=== PATIENT | male | born 1950 | race African-American/Black ===

== ENCOUNTER 2020-04-01 03:47 | Inpatient (IN) | payer MEDICARE ==
[~2020-04-01] VITALS: Ht 170.2 cm; Wt 90.3 kg
[2020-04-01] VITALS (10 sets, daily range): BP systolic 127–200; BP diastolic 79–103
[2020-04-01 04:43] LABS: HEMATOCRIT. 22.8 % (42.0-52.0); HEMOGLOBIN. 7.7 g/dL (14.0-18.0); MEAN CORPUSCULAR VOLUME 94.7 fL (80.0-94.0); MEAN PLATELET VOLUME 8.8 fl (7.4-10.4); PLATELET 187 x1000/uL (130-400); RED CELL DISTRIBUTION WIDTH 14.1 % (11.6-14.6)
[2020-04-01 04:51] LABS: CHLORIDE 114 mEq/L (98-107)
[2020-04-01] MEDS ORDERED: FUROSEMIDE 100MG/10ML VIAL IV NR (05:12)
[2020-04-01] MEDS ORDERED: SODIUM BICARBONATE 8.4% 1 MEQ/ML 50ML SYR IV NR (05:15)
[2020-04-01] MEDS ORDERED: CALCIUM CHLORIDE 1GM/10ML SYR IV NR (05:15)
[2020-04-01] MEDS ORDERED: DEXTROSE 50% WATER 50ML SYRINGE IV NR (05:15)
[2020-04-01] MEDS ORDERED: INSULIN REGULAR (HUMULIN R) 300UNITS/3ML IV NR (05:15)
[2020-04-01] MEDS ORDERED: ALBUTEROL (0.083%) 2.5MG/3ML NEB HHN NR (05:15)
[2020-04-01 05:39] LABS: PLATELET ESTIMATE NORMAL
[2020-04-01] MEDS ORDERED: DEXTROSE 50% WATER 50ML SYRINGE IV ONE (07:45)
[2020-04-01 11:12] LABS: BG BASE EXCESS -9.6 mmol/L (-2.0-2.0); BG CARBOXYHEMOGLOBIN 0.4 % (0.5-1.5); BG DEOXYHEMOGLOBIN 9.1 % (0.0-5.0); BG FRACTION INSPIRED OXYGEN 21; BG HCO3 ACT 17.4 mmol/L (22.0-26.0); BG METHEMOGLOBIN 0.2 % (0.0-1.5); BG OXYGEN SATURATION 90.8 % (92.0-98.5); BG OXYHEMOGLOBIN 90.3 % (94.0-97.0); BG PCO2 43.6 mmHg (35.0-45.0); BG PH 7.219 (7.350-7.450); BG PO2 68.8 mmHg (75.0-100.0); BG SAMPLE SITE RIGHT RADIAL; BG TOTAL HEMOGLOBIN 7.6 g/dL (12.0-18.0); BG VENT MODE ROOM AIR
[2020-04-01] MEDS ORDERED: TAMS-11 PO (11:51)
[2020-04-01] MEDS ORDERED: AMLO10TA80 PO (11:51)
[2020-04-01] MEDS ORDERED: METO-385 PO (11:51)
[2020-04-01] MEDS ORDERED: SIMV-46 PO (11:51)
[2020-04-01] MEDS ORDERED: CLON-457 PO (11:51)
[2020-04-01] MEDS ORDERED: ACETAMINOPHEN 650MG SUPP PR PRN (12:00)
[2020-04-01] MEDS ORDERED: HYDROCODONE/ACETAMINOPHEN 5/325MG TABLET PO PRN (12:00)
[2020-04-01] MEDS ORDERED: ACETAMINOPHEN 325MG TABLET PO PRN (12:00)
[2020-04-01 12:40] LABS: PROTHROMBIN TIME 10.9 sec (9.6-11.0)
[2020-04-01] MEDS: ENOXAPARIN 30MG/0.3ML SYR SUBCUT SCH (13:00)
[2020-04-01] MEDS: CLONIDINE 0.1MG TABLET PO SCH ×2 (14:00→20:26)
[2020-04-01] MEDS ORDERED: FENTANYL CITRATE/PF 50MCG/ML 2ML VIAL ONE (14:23)
[2020-04-01] MEDS ORDERED: FENTANYL CITRATE/PF 50MCG/ML 2ML VIAL IV NR (14:23)
[2020-04-01] MEDS ORDERED: CEFAZOLIN 1000MG PREMIX 50 ML IV NR (14:23)
[2020-04-01] MEDS ORDERED: CEFAZOLIN 1000MG PREMIX 50 ML IV ONE (14:23)
[2020-04-01] MEDS ORDERED: SODIUM BICARBONATE 4% (2.4MEQ) 5ML VIAL IV ONE (15:00)
[2020-04-01] MEDS ORDERED: HEPARIN 1000 UNITS/ML 10ML ONE (15:00)
[2020-04-01] MEDS ORDERED: LIDOCAINE HCL 1% 20ML VIAL (Pyxis) INJ ONE (15:00)
[2020-04-01] MEDS: HYDRALAZINE 20MG/ML VIAL IV SCH ×2 (16:14→23:15)
[2020-04-01 16:45] LABS: FOLIC ACID (FOLATE) SERUM 7.1 ng/mL (>5.38)
[2020-04-01 17:44] LABS: PHOSPHORUS 5.8 mg/dL (2.5-4.9)
[2020-04-01] MEDS ORDERED: DEXTROSE 50% WATER 50ML SYRINGE IV PRN (20:15)
[2020-04-01] MEDS: BLOOD SUGAR DIAGNOSTIC STRIP TEST SCH (20:26)
[2020-04-01] MEDS: INSULIN LISPRO 100 UNITS/ML SUBCUT SCH (20:26)
[2020-04-01] MEDS: METOPROLOL TARTRATE 50MG TABLET PO SCH (20:26)
[2020-04-02] VITALS (26 sets, daily range): BP systolic 133–208; BP diastolic 73–111
[2020-04-02] MEDS ORDERED: VANCOMYCIN 1 G PREMIX 200 ML IV STA (00:12)
[2020-04-02] MEDS ORDERED: PIPERACILLIN/TAZOBACTAM 2.25 G in DEXTROSE 5% WATER 50 ML IV SCH (00:15)
[2020-04-02] MEDS: ACETAMINOPHEN 325MG TABLET PO PRN (00:40)
[2020-04-02] MEDS: PIPERACILLIN/TAZOBACTAM 2.25 G in DEXTROSE 5% WATER 50 ML IV SCH ×2 (01:31→20:41)
[2020-04-02] MEDS ORDERED: VANCOMYCIN 1500MG in DEXTROSE 5% WATER 250ML IV NR (02:00)
[2020-04-02 02:07] LABS: CREATINE KINASE 2841 IU/L (39-308)
[2020-04-02] MEDS: CLONIDINE 0.1MG TABLET PO SCH ×3 (05:30→20:41)
[2020-04-02] MEDS: HYDRALAZINE 20MG/ML VIAL IV SCH ×2 (05:30)
[2020-04-02 07:18] LABS: HEMATOCRIT. 22.2 % (42.0-52.0); HEMOGLOBIN. 7.3 g/dL (14.0-18.0); MEAN CORPUSCULAR HEMOGLOBIN 31.3 pg (28.0-32.0); MEAN CORPUSCULAR VOLUME 95.1 fL (80.0-94.0); MEAN PLATELET VOLUME 9.4 fl (7.4-10.4); PLATELET 167 x1000/uL (130-400); RED BLOOD CELL COUNT 2.33 mill/uL (4.7-6.1)
[2020-04-02 07:24] LABS: CHLORIDE 113 mEq/L (98-107)
[2020-04-02] MEDS: BLOOD SUGAR DIAGNOSTIC STRIP TEST SCH ×4 (07:30→21:00)
[2020-04-02 07:32] LABS: LDL CHOLESTEROL 55 mg/dL (5-100)
[2020-04-02 07:35] LABS: HDL CHOLESTEROL 68 mg/dL (40-59); T4 FREE 0.83 ng/dL (0.76-1.46)
[2020-04-02] MEDS ORDERED: CEFAZOLIN 1000MG PREMIX 50 ML IV ONE (07:40)
[2020-04-02] MEDS ORDERED: CEFAZOLIN 1000MG PREMIX 50 ML IV NR (07:40)
[2020-04-02] MEDS ORDERED: FENTANYL CITRATE/PF 50MCG/ML 2ML VIAL ONE (07:41)
[2020-04-02] MEDS ORDERED: FENTANYL CITRATE/PF 50MCG/ML 2ML VIAL IV NR (07:41)
[2020-04-02] MEDS: INSULIN LISPRO 100 UNITS/ML SUBCUT SCH ×4 (08:00→21:00)
[2020-04-02] MEDS: METOPROLOL TARTRATE 50MG TABLET PO SCH ×2 (09:35→22:34)
[2020-04-02] MEDS: TAMSULOSIN HCL 0.4MG SR CAPSULE PO SCH (09:36)
[2020-04-02] MEDS: AMLODIPINE 10MG TABLET PO SCH (09:36)
[2020-04-02] MEDS ORDERED: HYDRALAZINE HCL 25MG TABLET PO SCH (12:35)
[2020-04-02] MEDS: FOLIC ACID/VITAMIN B COMP W-C TABLET PO SCH (13:40)
[2020-04-02] MEDS: ENOXAPARIN 30MG/0.3ML SYR SUBCUT SCH (13:40)
[2020-04-02] MEDS: CALCIUM ACETATE 667MG CAPSULE PO SCH ×2 (13:40→19:21)
[2020-04-02] MEDS: HYDRALAZINE HCL 25MG TABLET PO SCH ×2 (14:51→22:33)
[2020-04-02] MEDS ORDERED: VANCOMYCIN 750 MG PREMIX 150 ML IV NR (17:00)
[2020-04-02 18:40] LABS: COLOR URINE YELLOW (YELLOW); KETONES URINE NEGATIVE (NEGATIVE); LEUKOCYTE ESTERASE URINE NEGATIVE (NEGATIVE); NITRITE URINE NEGATIVE (NEGATIVE); OCCULT BLOOD URINE 3+ (NEGATIVE); PH URINE 5.5 (4.5-8.0); PROTEIN URINE 4+ (NEGATIVE); SPECIFIC GRAVITY URINE 1.016 (1.005-1.030); UROBILINOGEN URINE 0.2 E.U./dL (0.2-1.0)
[2020-04-02 18:41] LABS: CLARITY URINE HAZY (CLEAR)
[2020-04-02 18:51] LABS: *AMPHETAMINES SCREEN URINE NEGATIVE (NEGATIVE); *BARBITURATES SCREEN URINE NEGATIVE (NEGATIVE); *BENZODIAZEPINES SCREEN URINE NEGATIVE (NEGATIVE); *COCAINE SCREEN URINE NEGATIVE (NEGATIVE)
[2020-04-02 18:52] LABS: CANNABINOID URINE SCREEN NEGATIVE (NEGATIVE); METHADONE URINE SCREEN NEGATIVE (NEGATIVE); OPIATES URINE SCREEN NEGATIVE (NEGATIVE); PHENCYCLIDINE URINE SCREEN NEGATIVE (NEGATIVE)
[2020-04-02] MEDS: FERROUS SULFATE 325MG TABLET PO SCH (19:21)
[2020-04-02] MEDS: EPOETIN ALFA 10000UNITS/ML VIAL SUBCUT SCH (22:20)
[2020-04-03] VITALS (12 sets, daily range): BP systolic 128–183; BP diastolic 59–100
[2020-04-03] MEDS: HYDRALAZINE 20MG/ML VIAL IV PRN (03:26)
[2020-04-03] MEDS: HYDRALAZINE HCL 25MG TABLET PO SCH (05:22)
[2020-04-03] MEDS: CLONIDINE 0.1MG TABLET PO SCH ×3 (05:23→22:22)
[2020-04-03 07:14] LABS: HEMATOCRIT 26.7 % (42.0-52.0); MEAN CORPUSCULAR HEMOGLOBIN 31.1 pg (28.0-32.0); PLATELET 153 x1000/uL (130-400)
[2020-04-03] MEDS: BLOOD SUGAR DIAGNOSTIC STRIP TEST SCH ×4 (07:30→20:59)
[2020-04-03] MEDS: INSULIN LISPRO 100 UNITS/ML SUBCUT SCH ×4 (08:00→21:00)
[2020-04-03] MEDS: CALCIUM ACETATE 667MG CAPSULE PO SCH ×3 (09:18→17:49)
[2020-04-03] MEDS: FERROUS SULFATE 325MG TABLET PO SCH ×2 (09:18→17:49)
[2020-04-03] MEDS: FOLIC ACID/VITAMIN B COMP W-C TABLET PO SCH (09:18)
[2020-04-03] MEDS: METOPROLOL TARTRATE 50MG TABLET PO SCH ×2 (09:18→20:49)
[2020-04-03] MEDS: ONDANSETRON HCL 4MG/2ML INJ IV PRN (09:18)
[2020-04-03] MEDS: TAMSULOSIN HCL 0.4MG SR CAPSULE PO SCH (09:19)
[2020-04-03] MEDS: PIPERACILLIN/TAZOBACTAM 2.25 G in DEXTROSE 5% WATER 50 ML IV SCH ×2 (09:19→20:50)
[2020-04-03] MEDS: AMLODIPINE 10MG TABLET PO SCH (09:19)
[2020-04-03 11:15] LABS: PLATELET ESTIMATE NORMAL
[2020-04-03] MEDS: ACETAMINOPHEN 325MG TABLET PO PRN (13:41)
[2020-04-03] MEDS: HYDRALAZINE HCL 100MG TABLET PO SCH ×2 (13:42→22:22)
[2020-04-03] MEDS: ENOXAPARIN 30MG/0.3ML SYR SUBCUT SCH (13:43)
[2020-04-03 16:05] LABS: HEPATITIS B SURFACE AB < 3.1 mIU/mL
[2020-04-03 16:16] LABS: HEPATITIS B SURFACE ANTIGEN NEGATIVE
[2020-04-04] VITALS (11 sets, daily range): BP systolic 122–167; BP diastolic 55–84
[2020-04-04] MEDS: ACETAMINOPHEN 325MG TABLET PO PRN ×3 (01:09→19:43)
[2020-04-04] MEDS: HYDRALAZINE HCL 100MG TABLET PO SCH ×3 (04:59→22:30)
[2020-04-04] MEDS: CLONIDINE 0.1MG TABLET PO SCH ×3 (04:59→22:30)
[2020-04-04 07:00] LABS: HEMATOCRIT 24.4 % (42.0-52.0); HEMOGLOBIN 8.3 g/dL (14.0-18.0); MEAN CORPUSCULAR HEMOGLOBIN 31.5 pg (28.0-32.0); MEAN CORPUSCULAR VOLUME 93.1 fL (80.0-94.0); PLATELET 126 x1000/uL (130-400); RED BLOOD CELL COUNT 2.62 mill/uL (4.7-6.1); RED CELL DISTRIBUTION WIDTH 13.7 % (11.6-14.6)
[2020-04-04] MEDS: BLOOD SUGAR DIAGNOSTIC STRIP TEST SCH ×4 (07:30→21:03)
[2020-04-04] MEDS: FOLIC ACID/VITAMIN B COMP W-C TABLET PO SCH (08:50)
[2020-04-04] MEDS: CALCIUM ACETATE 667MG CAPSULE PO SCH ×3 (08:50→18:33)
[2020-04-04] MEDS: FERROUS SULFATE 325MG TABLET PO SCH ×2 (08:50→18:34)
[2020-04-04] MEDS: PIPERACILLIN/TAZOBACTAM 2.25 G in DEXTROSE 5% WATER 50 ML IV SCH ×2 (08:51→21:09)
[2020-04-04] MEDS: INSULIN LISPRO 100 UNITS/ML SUBCUT SCH ×4 (08:55→21:00)
[2020-04-04] MEDS: METOPROLOL TARTRATE 50MG TABLET PO SCH ×2 (09:00→21:09)
[2020-04-04] MEDS: TAMSULOSIN HCL 0.4MG SR CAPSULE PO SCH (09:00)
[2020-04-04] MEDS: AMLODIPINE 10MG TABLET PO SCH (09:00)
[2020-04-04] MEDS: ENOXAPARIN 30MG/0.3ML SYR SUBCUT SCH (13:00)
[2020-04-04] MEDS: HYDRALAZINE 20MG/ML VIAL IV PRN (19:42)
[2020-04-04] MEDS: ATORVASTATIN CALCIUM 20MG TABLET PO SCH (21:09)
[2020-04-04] MEDS ORDERED: VANCOMYCIN 750 MG PREMIX 150 ML IV SCH (22:00)
[2020-04-05] VITALS (10 sets, daily range): BP systolic 129–163; BP diastolic 65–84
[2020-04-05] MEDS: HYDRALAZINE HCL 100MG TABLET PO SCH ×3 (05:36→22:26)
[2020-04-05] MEDS: CLONIDINE 0.1MG TABLET PO SCH ×3 (05:36→22:26)
[2020-04-05 05:53] LABS: HEMATOCRIT 24.6 % (42.0-52.0); HEMOGLOBIN 8.3 g/dL (14.0-18.0); MEAN CORPUSCULAR HEMOGLOBIN 31.2 pg (28.0-32.0); MEAN CORPUSCULAR VOLUME 92.6 fL (80.0-94.0); PLATELET 149 x1000/uL (130-400); RED BLOOD CELL COUNT 2.65 mill/uL (4.7-6.1); RED CELL DISTRIBUTION WIDTH 13.6 % (11.6-14.6)
[2020-04-05] MEDS: BLOOD SUGAR DIAGNOSTIC STRIP TEST SCH ×4 (08:06→20:48)
[2020-04-05] MEDS: INSULIN LISPRO 100 UNITS/ML SUBCUT SCH ×4 (08:13→21:00)
[2020-04-05] MEDS: CALCIUM ACETATE 667MG CAPSULE PO SCH ×3 (08:14→17:35)
[2020-04-05] MEDS: PIPERACILLIN/TAZOBACTAM 2.25 G in DEXTROSE 5% WATER 50 ML IV SCH ×2 (08:15→20:58)
[2020-04-05] MEDS: FOLIC ACID/VITAMIN B COMP W-C TABLET PO SCH (08:15)
[2020-04-05] MEDS: AMLODIPINE 10MG TABLET PO SCH (08:15)
[2020-04-05] MEDS: TAMSULOSIN HCL 0.4MG SR CAPSULE PO SCH (08:16)
[2020-04-05] MEDS: FERROUS SULFATE 325MG TABLET PO SCH ×2 (08:16→17:35)
[2020-04-05] MEDS: METOPROLOL TARTRATE 50MG TABLET PO SCH ×2 (08:16→20:59)
[2020-04-05] MEDS: ENOXAPARIN 30MG/0.3ML SYR SUBCUT SCH (13:00)
[2020-04-05] MEDS: ACETAMINOPHEN 325MG TABLET PO PRN (13:25)
[2020-04-05] MEDS: ATORVASTATIN CALCIUM 20MG TABLET PO SCH (20:58)
[2020-04-05] MEDS: EPOETIN ALFA 10000UNITS/ML VIAL SUBCUT SCH (20:58)
[2020-04-06] VITALS (9 sets, daily range): BP systolic 106–154; BP diastolic 57–80
[2020-04-06] MEDS: CLONIDINE 0.1MG TABLET PO SCH ×3 (06:08→22:19)
[2020-04-06] MEDS: HYDRALAZINE HCL 100MG TABLET PO SCH ×3 (06:08→22:19)
[2020-04-06 07:08] LABS: HEMATOCRIT. 24.2 % (42.0-52.0); HEMOGLOBIN. 8.2 g/dL (14.0-18.0); MEAN CORPUSCULAR HEMOGLOBIN 31.4 pg (28.0-32.0); MEAN CORPUSCULAR VOLUME 92.7 fL (80.0-94.0); MEAN PLATELET VOLUME 9.5 fl (7.4-10.4); PLATELET 160 x1000/uL (130-400); RED BLOOD CELL COUNT 2.62 mill/uL (4.7-6.1); RED CELL DISTRIBUTION WIDTH 13.4 % (11.6-14.6)
[2020-04-06] MEDS: BLOOD SUGAR DIAGNOSTIC STRIP TEST SCH ×4 (07:30→21:00)
[2020-04-06] MEDS: PIPERACILLIN/TAZOBACTAM 2.25 G in DEXTROSE 5% WATER 50 ML IV SCH (08:48)
[2020-04-06] MEDS: INSULIN LISPRO 100 UNITS/ML SUBCUT SCH ×4 (08:49→22:18)
[2020-04-06] MEDS: AMLODIPINE 10MG TABLET PO SCH (09:44)
[2020-04-06] MEDS: FOLIC ACID/VITAMIN B COMP W-C TABLET PO SCH (09:44)
[2020-04-06] MEDS: FERROUS SULFATE 325MG TABLET PO SCH ×2 (09:44→18:00)
[2020-04-06] MEDS: CALCIUM ACETATE 667MG CAPSULE PO SCH ×3 (09:45→18:00)
[2020-04-06] MEDS: TAMSULOSIN HCL 0.4MG SR CAPSULE PO SCH (09:45)
[2020-04-06] MEDS: METOPROLOL TARTRATE 50MG TABLET PO SCH ×2 (09:49→22:18)
[2020-04-06 14:48] LABS: PLATELET ESTIMATE NORMAL
[2020-04-06] MEDS ORDERED: VANCOMYCIN 750 MG PREMIX 150 ML IV NR (18:00)
[2020-04-06 18:07] LABS: BG BASE EXCESS 0.3 mmol/L (-2.0-2.0); BG CARBOXYHEMOGLOBIN 0.3 % (0.5-1.5); BG DEOXYHEMOGLOBIN 11.1 % (0.0-5.0); BG FRACTION INSPIRED OXYGEN 50; BG HCO3 ACT 23.7 mmol/L (22.0-26.0); BG OXYGEN SATURATION 88.9 % (92.0-98.5); BG OXYHEMOGLOBIN 88.6 % (94.0-97.0); BG PCO2 33.4 mmHg (35.0-45.0); BG PH 7.469 (7.350-7.450); BG PO2 57.8 mmHg (75.0-100.0); BG SAMPLE SITE RIGHT BRACHIAL; BG TOTAL HEMOGLOBIN 9.3 g/dL (12.0-18.0); BG VENT MODE MASK - VENTI
[2020-04-06] MEDS: ENOXAPARIN 30MG/0.3ML SYR SUBCUT SCH (18:11)
[2020-04-06] MEDS: DEXAMETHASONE 10 MG/ML VIAL IV SCH (18:12)
[2020-04-06] MEDS: ACETAMINOPHEN 325MG TABLET PO PRN (22:18)
[2020-04-06] MEDS: ATORVASTATIN CALCIUM 20MG TABLET PO SCH (22:18)
[2020-04-07] VITALS: BP_SYST 152; BP_SYST 154; BP_DIAS 68; BP_DIAS 70
[2020-04-07] MEDS: PIPERACILLIN/TAZOBACTAM 2.25 G in DEXTROSE 5% WATER 50 ML IV SCH (00:59)
[2020-04-07 04:00] VITALS: BP 148/71
[2020-04-07] MEDS: HYDRALAZINE HCL 100MG TABLET PO SCH ×3 (06:48→23:04)
[2020-04-07] MEDS: CLONIDINE 0.1MG TABLET PO SCH ×3 (06:48→23:04)
[2020-04-07 07:12] LABS: HEMOGLOBIN. 8.5 g/dL (14.0-18.0); MEAN CORPUSCULAR HEMOGLOBIN 31.6 pg (28.0-32.0); MEAN CORPUSCULAR VOLUME 92.4 fL (80.0-94.0); MEAN PLATELET VOLUME 9.5 fl (7.4-10.4); PLATELET 195 x1000/uL (130-400); RED CELL DISTRIBUTION WIDTH 13.2 % (11.6-14.6)
[2020-04-07] MEDS: BLOOD SUGAR DIAGNOSTIC STRIP TEST SCH ×4 (07:43→21:00)
[2020-04-07 08:00] VITALS: BP 149/75
[2020-04-07] MEDS: CALCIUM ACETATE 667MG CAPSULE PO SCH ×3 (08:10→18:39)
[2020-04-07] MEDS: FERROUS SULFATE 325MG TABLET PO SCH ×2 (08:10→18:40)
[2020-04-07] MEDS: AMLODIPINE 10MG TABLET PO SCH (08:11)
[2020-04-07] MEDS: FOLIC ACID/VITAMIN B COMP W-C TABLET PO SCH (08:11)
[2020-04-07] MEDS: METOPROLOL TARTRATE 50MG TABLET PO SCH ×2 (08:11→23:04)
[2020-04-07] MEDS: DEXAMETHASONE 10 MG/ML VIAL IV SCH (08:11)
[2020-04-07] MEDS: INSULIN LISPRO 100 UNITS/ML SUBCUT SCH ×4 (08:14→23:02)
[2020-04-07] MEDS: TAMSULOSIN HCL 0.4MG SR CAPSULE PO SCH (08:18)
[2020-04-07 10:58] LABS: BG CARBOXYHEMOGLOBIN 0.2 % (0.5-1.5); BG DEOXYHEMOGLOBIN 4.4 % (0.0-5.0); BG FRACTION INSPIRED OXYGEN 99.8; BG HCO3 ACT 20.9 mmol/L (22.0-26.0); BG METHEMOGLOBIN 0.2 % (0.0-1.5); BG OXYGEN SATURATION 95.6 % (92.0-98.5); BG OXYHEMOGLOBIN 95.2 % (94.0-97.0); BG PCO2 32.8 mmHg (35.0-45.0); BG PH 7.422 (7.350-7.450); BG PO2 87.6 mmHg (75.0-100.0); BG SAMPLE SITE RIGHT RADIAL; BG TOTAL HEMOGLOBIN 9.2 g/dL (12.0-18.0); BG VENT MODE MASK - NRB
[2020-04-07 12:00] VITALS: BP 148/73
[2020-04-07] MEDS: ENOXAPARIN 30MG/0.3ML SYR SUBCUT SCH (12:06)
[2020-04-07] MEDS ORDERED: AZITHROMYCIN 500 MG in DEXT 5% WATER 250 ML IV NR (14:30)
[2020-04-07] MEDS: CEFTRIAXONE 1 G PREMIX 50 ML IV SCH (15:16)
[2020-04-07 16:00] VITALS: BP 132/67
[2020-04-07] MEDS ORDERED: INSULIN GLARGINE UD 100 UNITS/ML SYR SUBCUT NR (16:30)
[2020-04-07] MEDS: THIAMINE HCL 100MG TABLET PO SCH (18:40)
[2020-04-07] MEDS ORDERED: INSULIN LISPRO 100 UNITS/ML SUBCUT NR ×2 (18:59→23:00)
[2020-04-07 19:15] LABS: PLATELET ESTIMATE NORMAL
[2020-04-07 20:00] VITALS: BP 137/73
[2020-04-07] MEDS ORDERED: INSULIN GLARGINE UD 100 UNITS/ML SYR SUBCUT SCH (22:45)
[2020-04-07] MEDS: EPOETIN ALFA 10000UNITS/ML VIAL SUBCUT SCH (23:04)
[2020-04-07] MEDS: ATORVASTATIN CALCIUM 20MG TABLET PO SCH (23:04)
[2020-04-08] VITALS (7 sets, daily range): BP systolic 114–153; BP diastolic 67–78
[2020-04-08] MEDS: HYDRALAZINE HCL 100MG TABLET PO SCH ×2 (05:13→14:00)
[2020-04-08] MEDS: CLONIDINE 0.1MG TABLET PO SCH ×2 (05:13→14:00)
[2020-04-08] MEDS: INSULIN LISPRO 100 UNITS/ML SUBCUT SCH ×4 (07:58→22:38)
[2020-04-08] MEDS: BLOOD SUGAR DIAGNOSTIC STRIP TEST SCH ×4 (07:58→22:38)
[2020-04-08] MEDS: AMLODIPINE 10MG TABLET PO SCH (09:00)
[2020-04-08] MEDS: METOPROLOL TARTRATE 50MG TABLET PO SCH (09:00)
[2020-04-08] MEDS: TAMSULOSIN HCL 0.4MG SR CAPSULE PO SCH (09:00)
[2020-04-08] MEDS: FERROUS SULFATE 325MG TABLET PO SCH ×2 (09:16→18:11)
[2020-04-08] MEDS: THIAMINE HCL 100MG TABLET PO SCH ×2 (09:16→18:11)
[2020-04-08] MEDS: DEXAMETHASONE 10 MG/ML VIAL IV SCH (09:16)
[2020-04-08] MEDS: CALCIUM ACETATE 667MG CAPSULE PO SCH ×3 (09:16→18:11)
[2020-04-08] MEDS: FOLIC ACID/VITAMIN B COMP W-C TABLET PO SCH (09:16)
[2020-04-08] MEDS: ZINC SULFATE 220 MG ( 50 ) CAPSULE PO SCH (09:16)
[2020-04-08] MEDS: ENOXAPARIN 30MG/0.3ML SYR SUBCUT SCH (09:17)
[2020-04-08 09:19] LABS: HEMATOCRIT. 25.6 % (42.0-52.0); HEMOGLOBIN. 8.5 g/dL (14.0-18.0); MEAN CORPUSCULAR VOLUME 92.9 fL (80.0-94.0); MEAN PLATELET VOLUME 9.5 fl (7.4-10.4); PLATELET 278 x1000/uL (130-400); RED BLOOD CELL COUNT 2.75 mill/uL (4.7-6.1); RED CELL DISTRIBUTION WIDTH 13.7 % (11.6-14.6)
[2020-04-08] MEDS ORDERED: INSULIN GLARGINE UD 100 UNITS/ML SYR SUBCUT SCH (10:00)
[2020-04-08 12:47] LABS: PLATELET ESTIMATE NORMAL
[2020-04-08] MEDS: CEFTRIAXONE 1 G PREMIX 50 ML IV SCH (12:49)
[2020-04-08] MEDS: AZITHROMYCIN 250 MG in DEXT 5% WATER 250 ML IV SCH (15:46)
[2020-04-08] MEDS: ATORVASTATIN CALCIUM 20MG TABLET PO SCH (22:37)
[2020-04-08] MEDS: INSULIN GLARGINE UD 100 UNITS/ML SYR SUBCUT SCH (22:38)
[2020-04-09] VITALS: BP 150/81
[2020-04-09] MEDS: HYDRALAZINE HCL 100MG TABLET PO SCH ×4 (00:31→21:18)
[2020-04-09] MEDS: METOPROLOL TARTRATE 50MG TABLET PO SCH ×3 (00:31→21:18)
[2020-04-09] MEDS: CLONIDINE 0.1MG TABLET PO SCH ×5 (00:31→21:17)
[2020-04-09] MEDS: EPOETIN ALFA 10000UNITS/ML VIAL SUBCUT SCH (00:32)
[2020-04-09] MEDS: ACETAMINOPHEN 325MG TABLET PO PRN ×2 (00:32→21:17)
[2020-04-09 04:00] VITALS: BP 141/78
[2020-04-09] MEDS: BLOOD SUGAR DIAGNOSTIC STRIP TEST SCH ×4 (05:53→21:20)
[2020-04-09 08:00] VITALS: BP 140/75
[2020-04-09] MEDS: INSULIN LISPRO 100 UNITS/ML SUBCUT SCH ×4 (08:10→21:19)
[2020-04-09] MEDS: ENOXAPARIN 30MG/0.3ML SYR SUBCUT SCH (08:11)
[2020-04-09] MEDS: FOLIC ACID/VITAMIN B COMP W-C TABLET PO SCH (08:12)
[2020-04-09] MEDS: ZINC SULFATE 220 MG ( 50 ) CAPSULE PO SCH (08:12)
[2020-04-09] MEDS: TAMSULOSIN HCL 0.4MG SR CAPSULE PO SCH (08:12)
[2020-04-09] MEDS: CALCIUM ACETATE 667MG CAPSULE PO SCH ×3 (08:12→17:41)
[2020-04-09] MEDS: FERROUS SULFATE 325MG TABLET PO SCH ×2 (08:12→17:41)
[2020-04-09] MEDS: AMLODIPINE 10MG TABLET PO SCH (08:12)
[2020-04-09] MEDS: DEXAMETHASONE 10 MG/ML VIAL IV SCH (08:13)
[2020-04-09] MEDS: THIAMINE HCL 100MG TABLET PO SCH ×2 (08:14→17:41)
[2020-04-09 08:25] LABS: HEMATOCRIT. 26.6 % (42.0-52.0); HEMOGLOBIN. 8.6 g/dL (14.0-18.0); MEAN CORPUSCULAR VOLUME 95.5 fL (80.0-94.0); MEAN PLATELET VOLUME 9.7 fl (7.4-10.4); PLATELET 277 x1000/uL (130-400); RED BLOOD CELL COUNT 2.79 mill/uL (4.7-6.1); RED CELL DISTRIBUTION WIDTH 13.6 % (11.6-14.6)
[2020-04-09 12:00] VITALS: BP 141/78
[2020-04-09 12:08] LABS: CREATINE KINASE MB FRACTION 4.6 ng/mL (0.5-3.6)
[2020-04-09] MEDS: CEFTRIAXONE 1,000 MG in DEXTROSE 5% WATER 50 ML IV SCH (12:38)
[2020-04-09] MEDS: AZITHROMYCIN 250 MG in DEXT 5% WATER 250 ML IV SCH (13:36)
[2020-04-09 16:00] VITALS: BP 135/71
[2020-04-09 17:24] LABS: NUCLEATED RED BLOOD CELLS 1 /100 WBC; PLATELET ESTIMATE NORMAL
[2020-04-09 20:00] VITALS: BP 160/81
[2020-04-09] MEDS: ONDANSETRON HCL 4MG/2ML INJ IV PRN (20:37)
[2020-04-09] MEDS: ATORVASTATIN CALCIUM 20MG TABLET PO SCH (21:18)
[2020-04-09] MEDS: INSULIN GLARGINE UD 100 UNITS/ML SYR SUBCUT SCH (21:20)
[2020-04-10] VITALS: BP 129/66
[2020-04-10 04:00] VITALS: BP 146/77
[2020-04-10] MEDS: HYDRALAZINE HCL 100MG TABLET PO SCH ×3 (06:18→22:12)
[2020-04-10] MEDS: CLONIDINE 0.1MG TABLET PO SCH ×3 (06:18→22:11)
[2020-04-10] MEDS: BLOOD SUGAR DIAGNOSTIC STRIP TEST SCH ×4 (07:24→20:56)
[2020-04-10] MEDS: INSULIN LISPRO 100 UNITS/ML SUBCUT SCH ×4 (07:24→21:12)
[2020-04-10 08:00] VITALS: BP 145/79
[2020-04-10 08:14] LABS: HEMATOCRIT. 24.7 % (42.0-52.0); HEMOGLOBIN. 8.1 g/dL (14.0-18.0); MEAN CORPUSCULAR HEMOGLOBIN 30.3 pg (28.0-32.0); MEAN CORPUSCULAR VOLUME 92.9 fL (80.0-94.0); MEAN PLATELET VOLUME 9.1 fl (7.4-10.4); PLATELET 256 x1000/uL (130-400); RED BLOOD CELL COUNT 2.66 mill/uL (4.7-6.1); RED CELL DISTRIBUTION WIDTH 13.5 % (11.6-14.6)
[2020-04-10] MEDS: ENOXAPARIN 30MG/0.3ML SYR SUBCUT SCH (08:21)
[2020-04-10] MEDS: DEXAMETHASONE 10 MG/ML VIAL IV SCH (08:21)
[2020-04-10] MEDS: CALCIUM ACETATE 667MG CAPSULE PO SCH ×3 (08:22→17:23)
[2020-04-10] MEDS: TAMSULOSIN HCL 0.4MG SR CAPSULE PO SCH (08:22)
[2020-04-10] MEDS: AMLODIPINE 10MG TABLET PO SCH (08:22)
[2020-04-10] MEDS: ZINC SULFATE 220 MG ( 50 ) CAPSULE PO SCH (08:22)
[2020-04-10] MEDS: METOPROLOL TARTRATE 50MG TABLET PO SCH ×2 (08:22→20:56)
[2020-04-10] MEDS: FERROUS SULFATE 325MG TABLET PO SCH ×2 (08:22→17:24)
[2020-04-10] MEDS: ACETAMINOPHEN 325MG TABLET PO PRN ×2 (08:23→13:43)
[2020-04-10] MEDS: FOLIC ACID/VITAMIN B COMP W-C TABLET PO SCH (08:23)
[2020-04-10] MEDS: THIAMINE HCL 100MG TABLET PO SCH ×2 (08:23→17:23)
[2020-04-10 12:00] VITALS: BP 138/79
[2020-04-10 12:57] LABS: PLATELET ESTIMATE NORMAL
[2020-04-10] MEDS: CEFTRIAXONE 1,000 MG in DEXTROSE 5% WATER 50 ML IV SCH (13:05)
[2020-04-10] MEDS: AZITHROMYCIN 250 MG in DEXT 5% WATER 250 ML IV SCH (13:40)
[2020-04-10 15:29] LABS: BG BASE EXCESS -5.3 mmol/L (-2.0-2.0); BG CARBOXYHEMOGLOBIN 0.4 % (0.5-1.5); BG FRACTION INSPIRED OXYGEN 100; BG HCO3 ACT 19.5 mmol/L (22.0-26.0); BG METHEMOGLOBIN 0.1 % (0.0-1.5); BG OXYGEN SATURATION 89.9 % (92.0-98.5); BG OXYHEMOGLOBIN 89.5 % (94.0-97.0); BG PCO2 35.1 mmHg (35.0-45.0); BG PH 7.362 (7.350-7.450); BG PO2 62.3 mmHg (75.0-100.0); BG SAMPLE SITE RIGHT BRACHIAL; BG TOTAL HEMOGLOBIN 9.2 g/dL (12.0-18.0); BG VENT MODE MASK - NRB
[2020-04-10 16:00] VITALS: BP 117/66
[2020-04-10 20:00] VITALS: BP 127/81
[2020-04-10] MEDS: ATORVASTATIN CALCIUM 20MG TABLET PO SCH (20:56)
[2020-04-10] MEDS: EPOETIN ALFA 10000UNITS/ML VIAL SUBCUT SCH (20:58)
[2020-04-10] MEDS: INSULIN GLARGINE UD 100 UNITS/ML SYR SUBCUT SCH (22:06)
[2020-04-11 00:50] VITALS: BP 138/74
[2020-04-11] MEDS: ACETAMINOPHEN 325MG TABLET PO PRN (00:52)
[2020-04-11 04:00] VITALS: BP 149/77
[2020-04-11] MEDS: CLONIDINE 0.1MG TABLET PO SCH ×3 (05:56→21:59)
[2020-04-11] MEDS: HYDRALAZINE HCL 100MG TABLET PO SCH ×3 (05:56→21:07)
[2020-04-11] MEDS: BLOOD SUGAR DIAGNOSTIC STRIP TEST SCH ×4 (06:40→21:09)
[2020-04-11 08:00] VITALS: BP 127/70
[2020-04-11] MEDS: THIAMINE HCL 100MG TABLET PO SCH ×2 (08:09→18:22)
[2020-04-11] MEDS: ENOXAPARIN 30MG/0.3ML SYR SUBCUT SCH (08:10)
[2020-04-11] MEDS: ZINC SULFATE 220 MG ( 50 ) CAPSULE PO SCH (08:10)
[2020-04-11] MEDS: FOLIC ACID/VITAMIN B COMP W-C TABLET PO SCH (08:10)
[2020-04-11] MEDS: TAMSULOSIN HCL 0.4MG SR CAPSULE PO SCH (08:10)
[2020-04-11] MEDS: DEXAMETHASONE 10 MG/ML VIAL IV SCH (08:10)
[2020-04-11] MEDS: FERROUS SULFATE 325MG TABLET PO SCH ×2 (08:10→18:22)
[2020-04-11] MEDS: METOPROLOL TARTRATE 50MG TABLET PO SCH ×2 (08:10→21:08)
[2020-04-11] MEDS: AMLODIPINE 10MG TABLET PO SCH (08:10)
[2020-04-11] MEDS: CALCIUM ACETATE 667MG CAPSULE PO SCH ×3 (08:11→18:22)
[2020-04-11] MEDS: INSULIN LISPRO 100 UNITS/ML SUBCUT SCH ×4 (08:12→21:08)
[2020-04-11 12:00] VITALS: BP 142/69
[2020-04-11] MEDS ORDERED: VANCOMYCIN 1500MG in DEXTROSE 5% WATER 250ML IV NR (12:30)
[2020-04-11] MEDS: PIPERACILLIN/TAZOBACTAM 2.25 G in DEXTROSE 5% WATER 50 ML IV SCH (12:50)
[2020-04-11 13:53] LABS: BG BASE EXCESS -3.2 mmol/L (-2.0-2.0); BG CARBOXYHEMOGLOBIN 0.3 % (0.5-1.5); BG DEOXYHEMOGLOBIN 7.5 % (0.0-5.0); BG FRACTION INSPIRED OXYGEN 100; BG HCO3 ACT 20.8 mmol/L (22.0-26.0); BG METHEMOGLOBIN 0.1 % (0.0-1.5); BG OXYGEN SATURATION 92.5 % (92.0-98.5); BG OXYHEMOGLOBIN 92.1 % (94.0-97.0); BG PCO2 32.9 mmHg (35.0-45.0); BG PH 7.418 (7.350-7.450); BG PO2 69.7 mmHg (75.0-100.0); BG SAMPLE SITE RIGHT RADIAL; BG TOTAL HEMOGLOBIN 8.8 g/dL (12.0-18.0); BG VENT MODE MASK - NRB
[2020-04-11 16:00] VITALS: BP 134/66
[2020-04-11] MEDS ORDERED: INSULIN LISPRO 100 UNITS/ML SUBCUT NR (18:15)
[2020-04-11 20:00] VITALS: BP 128/67
[2020-04-11] MEDS: ATORVASTATIN CALCIUM 20MG TABLET PO SCH (21:07)
[2020-04-11] MEDS: INSULIN LISPRO 100 UNITS/ML SUBCUT PRN (21:09)
[2020-04-11] MEDS: INSULIN GLARGINE UD 100 UNITS/ML SYR SUBCUT SCH (21:09)
[2020-04-12] VITALS (69 sets, daily range): BP systolic 30–192; BP diastolic 14–89
[2020-04-12] MEDS: PIPERACILLIN/TAZOBACTAM 2.25 G in DEXTROSE 5% WATER 50 ML IV SCH ×2 (00:21→13:39)
[2020-04-12] MEDS: HYDRALAZINE HCL 100MG TABLET PO SCH ×3 (05:04→22:01)
[2020-04-12] MEDS: CLONIDINE 0.1MG TABLET PO SCH ×3 (05:04→22:01)
[2020-04-12 06:26] LABS: CLARITY URINE CLOUDY (CLEAR); COLOR URINE YELLOW (YELLOW); KETONES URINE NEGATIVE (NEGATIVE); LEUKOCYTE ESTERASE URINE NEGATIVE (NEGATIVE); NITRITE URINE NEGATIVE (NEGATIVE); OCCULT BLOOD URINE TRACE (NEGATIVE); PROTEIN URINE 3+ (NEGATIVE); UROBILINOGEN URINE 0.2 E.U./dL (0.2-1.0)
[2020-04-12] MEDS: BLOOD SUGAR DIAGNOSTIC STRIP TEST SCH ×11 (08:06→23:59)
[2020-04-12] MEDS: CALCIUM ACETATE 667MG CAPSULE PO SCH ×3 (08:07→16:32)
[2020-04-12] MEDS: FERROUS SULFATE 325MG TABLET PO SCH ×2 (08:07→16:32)
[2020-04-12] MEDS: DEXAMETHASONE 10 MG/ML VIAL IV SCH (08:15)
[2020-04-12] MEDS: METOPROLOL TARTRATE 50MG TABLET PO SCH ×2 (08:15→21:09)
[2020-04-12] MEDS: ZINC SULFATE 220 MG ( 50 ) CAPSULE PO SCH (08:15)
[2020-04-12] MEDS: THIAMINE HCL 100MG TABLET PO SCH ×2 (08:15→16:35)
[2020-04-12] MEDS: AMLODIPINE 10MG TABLET PO SCH (08:15)
[2020-04-12] MEDS: ENOXAPARIN 30MG/0.3ML SYR SUBCUT SCH (08:15)
[2020-04-12] MEDS: INSULIN LISPRO 100 UNITS/ML SUBCUT SCH ×3 (08:19→17:00)
[2020-04-12] MEDS: FOLIC ACID/VITAMIN B COMP W-C TABLET PO SCH (08:19)
[2020-04-12] MEDS: TAMSULOSIN HCL 0.4MG SR CAPSULE PO SCH (08:19)
[2020-04-12] MEDS ORDERED: INSULIN GLARGINE UD 100 UNITS/ML SYR SUBCUT SCH (10:00)
[2020-04-12] MEDS ORDERED: SODIUM CHLORIDE 0.9% 10ML VIAL ONE (10:11)
[2020-04-12] MEDS ORDERED: SODIUM BICARBONATE 8.4% MEQ/ML 50ML VIAL IV ONE (10:11)
[2020-04-12] MEDS ORDERED: ATROPINE SULFATE 1MG/10ML SYR ONE (10:11)
[2020-04-12] MEDS ORDERED: EPINEPHRINE 0.1MG/ML (1:10,000) 10ML SYR ONE (10:11)
[2020-04-12] MEDS ORDERED: NOREPINEPHRINE 32 MG in DEXT 5% WATER 218 ML IV PRN (10:15)
[2020-04-12] MEDS ORDERED: EPINEPHRINE 10 MG in SODIUM CHLORIDE 0.9% 240 ML IV PRN (10:30)
[2020-04-12] MEDS ORDERED: DOPAMINE 400MG/250ML PREMIX 250 ML IV ONE (10:37)
[2020-04-12 11:47] LABS: BG BASE EXCESS -9.4 mmol/L (-2.0-2.0); BG CARBOXYHEMOGLOBIN 0.4 % (0.5-1.5); BG FRACTION INSPIRED OXYGEN 100; BG HCO3 ACT 20.3 mmol/L (22.0-26.0); BG METHEMOGLOBIN 0.2 % (0.0-1.5); BG OXYHEMOGLOBIN 92.4 % (94.0-97.0); BG PCO2 67.5 mmHg (35.0-45.0); BG PH 7.095 (7.350-7.450); BG PO2 96.9 mmHg (75.0-100.0); BG SAMPLE SITE LEFT BRACHIAL; BG TIDAL VOLUME(mL) 500 mL; BG TOTAL HEMOGLOBIN 8.8 g/dL (12.0-18.0); BG VENT MODE VENT - PRVC; BG VENT RATE 18 set
[2020-04-12] MEDS ORDERED: SODIUM BICARBONATE 8.4% 1 MEQ/ML 50ML SYR IV NR (12:00)
[2020-04-12] MEDS: PANTOPRAZOLE SODIUM 40 MG/VIAL IV SCH (12:25)
[2020-04-12] MEDS: DOPAMINE 400MG/250ML PREMIX 250 ML IV PRN (12:28)
[2020-04-12 12:43] LABS: HEMATOCRIT. 28.7 % (42.0-52.0); MEAN CORPUSCULAR HEMOGLOBIN 30.1 pg (28.0-32.0); MEAN CORPUSCULAR VOLUME 95.9 fL (80.0-94.0); MEAN PLATELET VOLUME 9.2 fl (7.4-10.4); PLATELET 292 x1000/uL (130-400); RED BLOOD CELL COUNT 2.99 mill/uL (4.7-6.1)
[2020-04-12 13:18] LABS: CHLORIDE 91 mEq/L (98-107)
[2020-04-12 13:56] LABS: BG BASE EXCESS -2.1 mmol/L (-2.0-2.0); BG CARBOXYHEMOGLOBIN 0.3 % (0.5-1.5); BG DEOXYHEMOGLOBIN 0.6 % (0.0-5.0); BG FRACTION INSPIRED OXYGEN 100; BG HCO3 ACT 23.9 mmol/L (22.0-26.0); BG METHEMOGLOBIN 0.3 % (0.0-1.5); BG OXYGEN SATURATION 99.4 % (92.0-98.5); BG OXYHEMOGLOBIN 98.8 % (94.0-97.0); BG PCO2 45.9 mmHg (35.0-45.0); BG PH 7.334 (7.350-7.450); BG PO2 450.5 mmHg (75.0-100.0); BG SAMPLE SITE RIGHT BRACHIAL; BG TIDAL VOLUME(mL) 500 mL; BG TOTAL HEMOGLOBIN 10.8 g/dL (12.0-18.0); BG VENT MODE VENT - PRVC; BG VENT RATE 18 set
[2020-04-12 13:59] LABS: PLATELET ESTIMATE NORMAL
[2020-04-12] MEDS: INSULIN LISPRO 100 UNITS/ML SUBCUT PRN (14:29)
[2020-04-12] MEDS: SODIUM BICARBONATE IV SCH (14:30)
[2020-04-12] MEDS: NACL IV SCH (14:30)
[2020-04-12] MEDS: DEXT IV SCH (14:30)
[2020-04-12] MEDS: ACETAMINOPHEN 325MG TABLET PO PRN (16:33)
[2020-04-12] MEDS ORDERED: MORPHINE SULFATE 2 MG/ML CPJ (NOT FOR IM USE) IV PRN (17:00)
[2020-04-12] MEDS ORDERED: DEXTROSE 50% WATER 50ML SYRINGE IV PRN ×2 (17:00)
[2020-04-12] MEDS: INSULIN REGULAR (DRIP) 100 UNITS in SODIUM CHLORIDE 0.9% 99 ML IV SCH ×2 (18:23→22:48)
[2020-04-12] MEDS: ATORVASTATIN CALCIUM 20MG TABLET PO SCH (21:08)
[2020-04-13] VITALS (102 sets, daily range): BP systolic 86–246; BP diastolic 48–98
[2020-04-13] MEDS: PIPERACILLIN/TAZOBACTAM 2.25 G in DEXTROSE 5% WATER 50 ML IV SCH ×2 (01:18→13:16)
[2020-04-13] MEDS: BLOOD SUGAR DIAGNOSTIC STRIP TEST SCH ×10 (01:18→23:15)
[2020-04-13] MEDS: HYDRALAZINE 20MG/ML VIAL IV PRN (03:06)
[2020-04-13] MEDS: DOPAMINE 400MG/250ML PREMIX 250 ML IV PRN ×2 (03:44→13:16)
[2020-04-13] MEDS: DEXT IV SCH (04:58)
[2020-04-13] MEDS: SODIUM BICARBONATE IV SCH (04:58)
[2020-04-13] MEDS: NACL IV SCH (04:58)
[2020-04-13] MEDS: CLONIDINE 0.1MG TABLET PO SCH ×2 (05:39→14:49)
[2020-04-13] MEDS: HYDRALAZINE HCL 100MG TABLET PO SCH ×3 (05:39→22:09)
[2020-04-13 05:58] LABS: CHLORIDE 95 mEq/L (98-107)
[2020-04-13 06:02] LABS: HEMATOCRIT. 26.3 % (42.0-52.0); HEMOGLOBIN. 8.7 g/dL (14.0-18.0); MEAN CORPUSCULAR HEMOGLOBIN 30.3 pg (28.0-32.0); MEAN CORPUSCULAR VOLUME 91.4 fL (80.0-94.0); MEAN PLATELET VOLUME 9.8 fl (7.4-10.4); PLATELET 149 x1000/uL (130-400); RED BLOOD CELL COUNT 2.88 mill/uL (4.7-6.1); RED CELL DISTRIBUTION WIDTH 13.8 % (11.6-14.6)
[2020-04-13] MEDS: FERROUS SULFATE 325MG TABLET PO SCH ×2 (06:11→17:09)
[2020-04-13] MEDS: CALCIUM ACETATE 667MG CAPSULE PO SCH ×3 (06:11→17:08)
[2020-04-13] MEDS ORDERED: LORAZEPAM 2MG/ML CPJ IV PRN (07:45)
[2020-04-13 07:58] LABS: BG BASE EXCESS 4.2 mmol/L (-2.0-2.0); BG CARBOXYHEMOGLOBIN 0.2 % (0.5-1.5); BG DEOXYHEMOGLOBIN 1.9 % (0.0-5.0); BG HCO3 ACT 26.9 mmol/L (22.0-26.0); BG OXYGEN SATURATION 98.1 % (92.0-98.5); BG OXYHEMOGLOBIN 97.9 % (94.0-97.0); BG PCO2 33.4 mmHg (35.0-45.0); BG PH 7.524 (7.350-7.450); BG PO2 136.1 mmHg (75.0-100.0); BG SAMPLE SITE A-LINE; BG TIDAL VOLUME(mL) 500 mL; BG TOTAL HEMOGLOBIN 10.1 g/dL (12.0-18.0); BG VENT MODE VENT- PRVC; BG VENT RATE 18 set
[2020-04-13] MEDS: ENOXAPARIN 30MG/0.3ML SYR SUBCUT SCH (08:36)
[2020-04-13] MEDS: PANTOPRAZOLE SODIUM 40 MG/VIAL IV SCH (08:36)
[2020-04-13] MEDS: DEXAMETHASONE 10 MG/ML VIAL IV SCH (08:37)
[2020-04-13] MEDS: AMLODIPINE 10MG TABLET PO SCH (09:00)
[2020-04-13] MEDS: METOPROLOL TARTRATE 50MG TABLET PO SCH (09:00)
[2020-04-13] MEDS: THIAMINE HCL 100MG TABLET PO SCH ×2 (09:00→17:09)
[2020-04-13] MEDS: TAMSULOSIN HCL 0.4MG SR CAPSULE PO SCH (09:00)
[2020-04-13 09:47] LABS: NUCLEATED RED BLOOD CELLS 1 /100 WBC
[2020-04-13 09:48] LABS: PLATELET ESTIMATE NORMAL
[2020-04-13] MEDS ORDERED: DEXT 5%/0.45% NACL 1000ML 1,000 ML IV SCH (10:00)
[2020-04-13] MEDS ORDERED: DEXTROSE 50% WATER 50ML SYRINGE IV PRN ×2 (12:45→20:30)
[2020-04-13] MEDS: FOLIC ACID/VITAMIN B COMP W-C TABLET PO SCH (14:48)
[2020-04-13] MEDS: ZINC SULFATE 220 MG ( 50 ) CAPSULE PO SCH (14:49)
[2020-04-13] MEDS ORDERED: BLOOD SUGAR DIAGNOSTIC STRIP TEST SCH ×2 (16:00→16:30)
[2020-04-13] MEDS ORDERED: INSULIN LISPRO 100 UNITS/ML SUBCUT SCH (17:00)
[2020-04-13] MEDS ORDERED: ENOXAPARIN 60MG/0.6ML SYR SUBCUT NR (17:18)
[2020-04-13] MEDS: EPOETIN ALFA 10000UNITS/ML VIAL SUBCUT SCH (20:36)
[2020-04-13] MEDS: ATORVASTATIN CALCIUM 20MG TABLET PO SCH (20:36)
[2020-04-13] MEDS ORDERED: SODIUM CHLORIDE 0.45% 1,000 ML IV SCH (21:00)
[2020-04-13] MEDS: INSULIN LISPRO 100 UNITS/ML SUBCUT SCH (23:16)
[2020-04-14] VITALS (97 sets, daily range): BP systolic 68–151; BP diastolic 35–77
[2020-04-14] MEDS: PIPERACILLIN/TAZOBACTAM 2.25 G in DEXTROSE 5% WATER 50 ML IV SCH ×2 (00:03→12:15)
[2020-04-14] MEDS: BLOOD SUGAR DIAGNOSTIC STRIP TEST SCH ×4 (05:11→23:10)
[2020-04-14] MEDS: INSULIN LISPRO 100 UNITS/ML SUBCUT SCH ×5 (05:12→23:15)
[2020-04-14] MEDS: HYDRALAZINE HCL 100MG TABLET PO SCH ×3 (05:12→22:00)
[2020-04-14 05:46] LABS: HEMATOCRIT. 25.2 % (42.0-52.0); HEMOGLOBIN. 8.1 g/dL (14.0-18.0); MEAN CORPUSCULAR HEMOGLOBIN 30.3 pg (28.0-32.0); MEAN CORPUSCULAR VOLUME 94.3 fL (80.0-94.0); MEAN PLATELET VOLUME 11.3 fl (7.4-10.4); PLATELET 107 x1000/uL (130-400); RED BLOOD CELL COUNT 2.67 mill/uL (4.7-6.1)
[2020-04-14] MEDS: CALCIUM ACETATE 667MG CAPSULE PO SCH ×3 (06:09→16:51)
[2020-04-14] MEDS: FERROUS SULFATE 325MG TABLET PO SCH ×2 (06:09→16:51)
[2020-04-14] MEDS: DOPAMINE 400MG/250ML PREMIX 250 ML IV PRN (06:33)
[2020-04-14] MEDS: AMLODIPINE 10MG TABLET PO SCH (07:37)
[2020-04-14] MEDS: TAMSULOSIN HCL 0.4MG SR CAPSULE PO SCH (07:40)
[2020-04-14] MEDS: FOLIC ACID/VITAMIN B COMP W-C TABLET PO SCH (08:04)
[2020-04-14] MEDS: DEXAMETHASONE 10 MG/ML VIAL IV SCH (08:04)
[2020-04-14] MEDS: PANTOPRAZOLE SODIUM 40 MG/VIAL IV SCH (08:04)
[2020-04-14] MEDS: ZINC SULFATE 220 MG ( 50 ) CAPSULE PO SCH (08:04)
[2020-04-14 09:29] LABS: BG BASE EXCESS 0.7 mmol/L (-2.0-2.0); BG CARBOXYHEMOGLOBIN 1.3 % (0.5-1.5); BG DEOXYHEMOGLOBIN 3.8 % (0.0-5.0); BG FRACTION INSPIRED OXYGEN 40; BG HCO3 ACT 27.1 mmol/L (22.0-26.0); BG METHEMOGLOBIN 0.2 % (0.0-1.5); BG OXYGEN SATURATION 96.1 % (92.0-98.5); BG OXYHEMOGLOBIN 94.7 % (94.0-97.0); BG PCO2 53.5 mmHg (35.0-45.0); BG PH 7.323 (7.350-7.450); BG PO2 92.9 mmHg (75.0-100.0); BG SAMPLE SITE A-LINE; BG TIDAL VOLUME(mL) 450 mL; BG TOTAL HEMOGLOBIN 8.3 g/dL (12.0-18.0); BG VENT MODE VENT-PRVC; BG VENT RATE 18 set
[2020-04-14] MEDS: ENOXAPARIN 80MG/0.8ML SYR SUBCUT SCH (12:16)
[2020-04-14] MEDS ORDERED: INSULIN LISPRO 100 UNITS/ML SUBCUT SCH (12:30)
[2020-04-14 17:06] LABS: PLATELET ESTIMATE DECREASED
[2020-04-14] MEDS ORDERED: VANCOMYCIN 750 MG PREMIX 150 ML IV NR (18:00)
[2020-04-14] MEDS ORDERED: INSULIN LISPRO 100 UNITS/ML SUBCUT NR (18:00)
[2020-04-14] MEDS ORDERED: BLOOD SUGAR DIAGNOSTIC STRIP TEST SCH (18:00)
[2020-04-14] MEDS: EPINEPHRINE 10 MG in SODIUM CHLORIDE 0.9% 240 ML IV PRN (18:45)
[2020-04-14] MEDS ORDERED: INSULIN GLARGINE UD 100 UNITS/ML SYR SUBCUT NR (19:00)
[2020-04-14] MEDS: ATORVASTATIN CALCIUM 20MG TABLET PO SCH (20:36)
[2020-04-14] MEDS ORDERED: INSULIN GLARGINE UD 100 UNITS/ML SYR SUBCUT SCH (22:00)
[2020-04-14] MEDS: INSULIN GLARGINE UD 100 UNITS/ML SYR SUBCUT SCH (23:13)
[2020-04-15] VITALS (94 sets, daily range): BP systolic 55–222; BP diastolic 38–97
[2020-04-15] MEDS ORDERED: INSULIN LISPRO 100 UNITS/ML SUBCUT PRN
[2020-04-15] MEDS: INSULIN LISPRO 100 UNITS/ML SUBCUT SCH ×4 (00:10→12:00)
[2020-04-15] MEDS: PIPERACILLIN/TAZOBACTAM 2.25 G in DEXTROSE 5% WATER 50 ML IV SCH ×2 (00:11→11:46)
[2020-04-15] MEDS ORDERED: NOREPINEPHRINE 32 MG in SODIUM CHLORIDE 0.9% 218 ML IV PRN (04:45)
[2020-04-15] MEDS: BLOOD SUGAR DIAGNOSTIC STRIP TEST SCH ×7 (04:52→23:00)
[2020-04-15] MEDS: EPINEPHRINE 10 MG in SODIUM CHLORIDE 0.9% 240 ML IV PRN (05:07)
[2020-04-15 05:43] LABS: HEMATOCRIT. 27.6 % (42.0-52.0); HEMOGLOBIN. 8.5 g/dL (14.0-18.0); MEAN CORPUSCULAR HEMOGLOBIN 30.2 pg (28.0-32.0); MEAN CORPUSCULAR VOLUME 98.4 fL (80.0-94.0); MEAN PLATELET VOLUME 11.6 fl (7.4-10.4); PLATELET 152 x1000/uL (130-400); RED CELL DISTRIBUTION WIDTH 14.6 % (11.6-14.6)
[2020-04-15] MEDS: HYDRALAZINE HCL 100MG TABLET PO SCH ×3 (06:00→21:48)
[2020-04-15] MEDS: CALCIUM ACETATE 667MG CAPSULE PO SCH ×3 (06:28→17:03)
[2020-04-15] MEDS: FERROUS SULFATE 325MG TABLET PO SCH ×2 (06:28→17:03)
[2020-04-15 07:44] LABS: BG BASE EXCESS -2.4 mmol/L (-2.0-2.0); BG CARBOXYHEMOGLOBIN 0.3 % (0.5-1.5); BG DEOXYHEMOGLOBIN 6.1 % (0.0-5.0); BG HCO3 ACT 26.4 mmol/L (22.0-26.0); BG METHEMOGLOBIN 0.3 % (0.0-1.5); BG OXYGEN SATURATION 93.9 % (92.0-98.5); BG OXYHEMOGLOBIN 93.3 % (94.0-97.0); BG PCO2 71.1 mmHg (35.0-45.0); BG PH 7.187 (7.350-7.450); BG PO2 80.5 mmHg (75.0-100.0); BG SAMPLE SITE A-LINE; BG TIDAL VOLUME(mL) 450 mL; BG TOTAL HEMOGLOBIN 8.7 g/dL (12.0-18.0); BG VENT MODE VENT- PRVC; BG VENT RATE 18 set
[2020-04-15 08:29] LABS: NUCLEATED RED BLOOD CELLS 2 /100 WBC
[2020-04-15 08:30] LABS: PLATELET ESTIMATE NORMAL
[2020-04-15] MEDS: ENOXAPARIN 80MG/0.8ML SYR SUBCUT SCH (09:00)
[2020-04-15] MEDS: AMLODIPINE 10MG TABLET PO SCH (09:00)
[2020-04-15] MEDS: INSULIN GLARGINE UD 100 UNITS/ML SYR SUBCUT SCH (09:18)
[2020-04-15] MEDS: FOLIC ACID/VITAMIN B COMP W-C TABLET PO SCH (09:19)
[2020-04-15] MEDS: DEXAMETHASONE 10 MG/ML VIAL IV SCH (09:19)
[2020-04-15] MEDS: PANTOPRAZOLE SODIUM 40 MG/VIAL IV SCH (09:20)
[2020-04-15] MEDS: ZINC SULFATE 220 MG ( 50 ) CAPSULE PO SCH (09:20)
[2020-04-15] MEDS ORDERED: INSULIN REGULAR (DRIP) 100 UNITS in SODIUM CHLORIDE 0.9% 99 ML IV PRN (10:15)
[2020-04-15] MEDS ORDERED: DEXTROSE 50% WATER 50ML SYRINGE IV PRN ×2 (10:30)
[2020-04-15] MEDS: METOCLOPRAMIDE HCL 10MG/2ML VIAL IV SCH ×2 (11:47→17:03)
[2020-04-15] MEDS: INSULIN REGULAR (DRIP) 100 UNITS in SODIUM CHLORIDE 0.9% 99 ML IV SCH ×3 (12:05→17:31)
[2020-04-15 15:24] LABS: BG BASE EXCESS 0.5 mmol/L (-2.0-2.0); BG CARBOXYHEMOGLOBIN 0.3 % (0.5-1.5); BG DEOXYHEMOGLOBIN 1.7 % (0.0-5.0); BG FRACTION INSPIRED OXYGEN 50; BG HCO3 ACT 26.2 mmol/L (22.0-26.0); BG METHEMOGLOBIN 0.4 % (0.0-1.5); BG OXYGEN SATURATION 98.3 % (92.0-98.5); BG OXYHEMOGLOBIN 97.6 % (94.0-97.0); BG PCO2 47.5 mmHg (35.0-45.0); BG PO2 141.4 mmHg (75.0-100.0); BG SAMPLE SITE A-LINE; BG TIDAL VOLUME(mL) 550 mL; BG TOTAL HEMOGLOBIN 9.3 g/dL (12.0-18.0); BG VENT MODE PRVC; BG VENT RATE 18 set
[2020-04-15] MEDS: ATORVASTATIN CALCIUM 20MG TABLET PO SCH (21:47)
[2020-04-16] VITALS (96 sets, daily range): BP systolic 79–220; BP diastolic 46–154
[2020-04-16] MEDS: BLOOD SUGAR DIAGNOSTIC STRIP TEST SCH ×9 (00:42→21:58)
[2020-04-16] MEDS: METOCLOPRAMIDE HCL 10MG/2ML VIAL IV SCH ×5 (00:43→23:41)
[2020-04-16] MEDS: PIPERACILLIN/TAZOBACTAM 2.25 G in DEXTROSE 5% WATER 50 ML IV SCH ×3 (00:43→23:41)
[2020-04-16] MEDS: INSULIN REGULAR (DRIP) 100 UNITS in SODIUM CHLORIDE 0.9% 99 ML IV SCH (03:08)
[2020-04-16 05:13] LABS: HEMATOCRIT 21.7 % (42.0-52.0); MEAN CORPUSCULAR VOLUME 93.1 fL (80.0-94.0); PLATELET 85 x1000/uL (130-400); RED BLOOD CELL COUNT 2.33 mill/uL (4.7-6.1); RED CELL DISTRIBUTION WIDTH 13.9 % (11.6-14.6)
[2020-04-16] MEDS: HYDRALAZINE HCL 100MG TABLET PO SCH ×3 (06:00→21:58)
[2020-04-16] MEDS: INSULIN LISPRO 100 UNITS/ML SUBCUT SCH ×4 (06:00→22:03)
[2020-04-16] MEDS: CALCIUM ACETATE 667MG CAPSULE PO SCH ×3 (06:22→18:10)
[2020-04-16] MEDS: FERROUS SULFATE 325MG TABLET PO SCH (06:22)
[2020-04-16 08:11] LABS: BG BASE EXCESS 2.4 mmol/L (-2.0-2.0); BG CARBOXYHEMOGLOBIN 0.4 % (0.5-1.5); BG DEOXYHEMOGLOBIN 1.6 % (0.0-5.0); BG FRACTION INSPIRED OXYGEN 50; BG HCO3 ACT 27.5 mmol/L (22.0-26.0); BG METHEMOGLOBIN 0.6 % (0.0-1.5); BG OXYGEN SATURATION 98.4 % (92.0-98.5); BG OXYHEMOGLOBIN 97.4 % (94.0-97.0); BG PCO2 45.6 mmHg (35.0-45.0); BG PH 7.399 (7.350-7.450); BG PO2 138.6 mmHg (75.0-100.0); BG SAMPLE SITE A-LINE; BG TIDAL VOLUME(mL) 550 mL; BG TOTAL HEMOGLOBIN 7.6 g/dL (12.0-18.0); BG VENT MODE PRVC; BG VENT RATE 18 set
[2020-04-16] MEDS: DEXAMETHASONE 10 MG/ML VIAL IV SCH (09:57)
[2020-04-16] MEDS: AMLODIPINE 10MG TABLET PO SCH (09:57)
[2020-04-16] MEDS: PANTOPRAZOLE SODIUM 40 MG/VIAL IV SCH (09:57)
[2020-04-16] MEDS: FOLIC ACID/VITAMIN B COMP W-C TABLET PO SCH (09:58)
[2020-04-16] MEDS: ZINC SULFATE 220 MG ( 50 ) CAPSULE PO SCH (09:58)
[2020-04-16] MEDS: ENOXAPARIN 80MG/0.8ML SYR SUBCUT SCH (09:59)
[2020-04-16] MEDS: NOREPINEPHRINE 32 MG in DEXT 5% WATER 218 ML IV PRN (11:52)
[2020-04-16] MEDS: FERROUS SULFATE 300MG/5ML UDC PO SCH (18:10)
[2020-04-16] MEDS: ATORVASTATIN CALCIUM 20MG TABLET PO SCH (22:03)
[2020-04-17] VITALS (98 sets, daily range): BP systolic 94–190; BP diastolic 41–94
[2020-04-17] MEDS: BLOOD SUGAR DIAGNOSTIC STRIP TEST SCH ×6 (02:26→21:41)
[2020-04-17] MEDS: INSULIN LISPRO 100 UNITS/ML SUBCUT SCH ×6 (02:32→21:47)
[2020-04-17 05:56] LABS: HEMATOCRIT 24.3 % (42.0-52.0); HEMOGLOBIN 7.8 g/dL (14.0-18.0); MEAN CORPUSCULAR HEMOGLOBIN 30.3 pg (28.0-32.0); PLATELET 80 x1000/uL (130-400); RED BLOOD CELL COUNT 2.59 mill/uL (4.7-6.1); RED CELL DISTRIBUTION WIDTH 14.2 % (11.6-14.6)
[2020-04-17] MEDS: HYDRALAZINE HCL 100MG TABLET PO SCH ×3 (06:00→21:30)
[2020-04-17] MEDS: FERROUS SULFATE 300MG/5ML UDC PO SCH ×2 (06:18→17:00)
[2020-04-17] MEDS: CALCIUM ACETATE 667MG CAPSULE PO SCH ×3 (06:18→17:00)
[2020-04-17] MEDS: METOCLOPRAMIDE HCL 10MG/2ML VIAL IV SCH ×4 (06:18→23:54)
[2020-04-17 07:20] LABS: BG BASE EXCESS 0.4 mmol/L (-2.0-2.0); BG CARBOXYHEMOGLOBIN 0.2 % (0.5-1.5); BG HCO3 ACT 26.2 mmol/L (22.0-26.0); BG METHEMOGLOBIN 0.5 % (0.0-1.5); BG OXYHEMOGLOBIN 96.3 % (94.0-97.0); BG PCO2 47.8 mmHg (35.0-45.0); BG PH 7.357 (7.350-7.450); BG PO2 101.3 mmHg (75.0-100.0); BG SAMPLE SITE A-LINE; BG TIDAL VOLUME(mL) 550 mL; BG VENT MODE VENT- PRVC; BG VENT RATE 18 set
[2020-04-17] MEDS: AMLODIPINE 10MG TABLET PO SCH (08:49)
[2020-04-17] MEDS: ZINC SULFATE 220 MG ( 50 ) CAPSULE PO SCH (09:11)
[2020-04-17] MEDS: PANTOPRAZOLE SODIUM 40 MG/VIAL IV SCH (09:12)
[2020-04-17] MEDS: FOLIC ACID/VITAMIN B COMP W-C TABLET PO SCH (09:12)
[2020-04-17] MEDS: DEXAMETHASONE 10 MG/ML VIAL IV SCH (09:12)
[2020-04-17] MEDS: PIPERACILLIN/TAZOBACTAM 2.25 G in DEXTROSE 5% WATER 50 ML IV SCH ×2 (13:14→23:54)
[2020-04-17] MEDS: DEXT 5%/0.9% NACL 1,000 ML IV SCH (13:16)
[2020-04-17] MEDS: ATORVASTATIN CALCIUM 20MG TABLET PO SCH (21:30)
[2020-04-18] VITALS (93 sets, daily range): BP systolic 1–204; BP diastolic 1–108
[2020-04-18] MEDS: BLOOD SUGAR DIAGNOSTIC STRIP TEST SCH ×6 (02:05→22:00)
[2020-04-18] MEDS: INSULIN LISPRO 100 UNITS/ML SUBCUT SCH ×6 (02:06→22:00)
[2020-04-18 05:35] LABS: HEMATOCRIT 23.3 % (42.0-52.0); HEMOGLOBIN 7.6 g/dL (14.0-18.0); MEAN CORPUSCULAR HEMOGLOBIN 30.4 pg (28.0-32.0); MEAN CORPUSCULAR VOLUME 93.8 fL (80.0-94.0); PLATELET 62 x1000/uL (130-400); RED BLOOD CELL COUNT 2.49 mill/uL (4.7-6.1)
[2020-04-18] MEDS: HYDRALAZINE HCL 100MG TABLET PO SCH ×3 (05:43→22:00)
[2020-04-18] MEDS: METOCLOPRAMIDE HCL 10MG/2ML VIAL IV SCH ×3 (05:43→18:57)
[2020-04-18] MEDS ORDERED: DOPAMINE 400MG/250ML PREMIX 250 ML IV PRN (08:00)
[2020-04-18] MEDS: DEXAMETHASONE 10 MG/ML VIAL IV SCH (08:46)
[2020-04-18] MEDS: CALCIUM ACETATE 667MG CAPSULE PO SCH ×3 (08:46→18:57)
[2020-04-18] MEDS: FERROUS SULFATE 300MG/5ML UDC PO SCH ×2 (08:46→18:57)
[2020-04-18] MEDS: PANTOPRAZOLE SODIUM 40 MG/VIAL IV SCH (08:46)
[2020-04-18] MEDS: FOLIC ACID/VITAMIN B COMP W-C TABLET PO SCH (08:46)
[2020-04-18] MEDS: ZINC SULFATE 220 MG ( 50 ) CAPSULE PO SCH (08:46)
[2020-04-18] MEDS: DEXT 5%/0.9% NACL 1,000 ML IV SCH (08:49)
[2020-04-18] MEDS: AMLODIPINE 10MG TABLET PO SCH (09:00)
[2020-04-18] MEDS: NOREPINEPHRINE 32 MG in DEXT 5% WATER 218 ML IV PRN (15:26)
[2020-04-18] MEDS: PIPERACILLIN/TAZOBACTAM 2.25 G in DEXTROSE 5% WATER 50 ML IV SCH (18:57)
[2020-04-18] MEDS: ATORVASTATIN CALCIUM 20MG TABLET PO SCH (21:00)
[2020-04-19] VITALS (93 sets, daily range): BP systolic 77–197; BP diastolic 49–100
[2020-04-19] MEDS: INSULIN LISPRO 100 UNITS/ML SUBCUT SCH ×6 (02:00→21:56)
[2020-04-19] MEDS: BLOOD SUGAR DIAGNOSTIC STRIP TEST SCH ×7 (02:00→23:52)
[2020-04-19 05:06] LABS: HEMATOCRIT 25.3 % (42.0-52.0); HEMOGLOBIN 8.1 g/dL (14.0-18.0); MEAN CORPUSCULAR HEMOGLOBIN 30.9 pg (28.0-32.0); MEAN CORPUSCULAR VOLUME 96.3 fL (80.0-94.0); RED BLOOD CELL COUNT 2.63 mill/uL (4.7-6.1)
[2020-04-19] MEDS: HYDRALAZINE HCL 100MG TABLET PO SCH ×3 (06:00→21:56)
[2020-04-19] MEDS: METOCLOPRAMIDE HCL 10MG/2ML VIAL IV SCH ×4 (07:52→17:44)
[2020-04-19] MEDS: FERROUS SULFATE 300MG/5ML UDC PO SCH ×2 (07:56→17:44)
[2020-04-19] MEDS: CALCIUM ACETATE 667MG CAPSULE PO SCH ×3 (07:56→17:44)
[2020-04-19] MEDS: DEXT 5%/0.9% NACL 1,000 ML IV SCH (08:00)
[2020-04-19] MEDS: AMLODIPINE 10MG TABLET PO SCH (08:13)
[2020-04-19] MEDS: ZINC SULFATE 220 MG ( 50 ) CAPSULE PO SCH (08:13)
[2020-04-19] MEDS: FOLIC ACID/VITAMIN B COMP W-C TABLET PO SCH (08:13)
[2020-04-19] MEDS: PANTOPRAZOLE SODIUM 40 MG/VIAL IV SCH (08:13)
[2020-04-19] MEDS: DEXAMETHASONE 10 MG/ML VIAL IV SCH (08:14)
[2020-04-19 08:39] LABS: PLATELET 62 x1000/uL (130-400)
[2020-04-19] MEDS: ACETAMINOPHEN 325MG TABLET PO PRN (08:42)
[2020-04-19] MEDS: HYDRALAZINE 20MG/ML VIAL IV PRN (10:21)
[2020-04-19] MEDS ORDERED: ENALAPRIL 1.25MG/ML VIAL 1ML IV PRN (13:00)
[2020-04-19] MEDS: ATORVASTATIN CALCIUM 20MG TABLET PO SCH (21:57)
[2020-04-19] MEDS ORDERED: INSULIN REGULAR (DRIP) 100 UNITS in SODIUM CHLORIDE 0.9% 99 ML IV PRN ×2 (22:15→22:28)
[2020-04-19] MEDS ORDERED: INSULIN REGULAR (DRIP) 100 UNITS in SODIUM CHLORIDE 0.9% 100 ML IV SCH (22:35)
[2020-04-19] MEDS: INSULIN REGULAR (DRIP) 100 UNITS in SODIUM CHLORIDE 0.9% 99 ML IV SCH (23:51)
[2020-04-20] VITALS (97 sets, daily range): BP systolic 93–298; BP diastolic 52–155
[2020-04-20] MEDS: BLOOD SUGAR DIAGNOSTIC STRIP TEST SCH ×24 (01:00→23:00)
[2020-04-20] MEDS: METOCLOPRAMIDE HCL 10MG/2ML VIAL IV SCH ×4 (03:06→17:03)
[2020-04-20] MEDS: DEXT 5%/0.9% NACL 1,000 ML IV SCH ×2 (03:14→21:03)
[2020-04-20] MEDS: INSULIN REGULAR (DRIP) 100 UNITS in SODIUM CHLORIDE 0.9% 99 ML IV SCH ×2 (04:54→14:11)
[2020-04-20] MEDS: HYDRALAZINE HCL 100MG TABLET PO SCH (05:11)
[2020-04-20 06:01] LABS: HEMATOCRIT 23.9 % (42.0-52.0); HEMOGLOBIN 7.8 g/dL (14.0-18.0); MEAN CORPUSCULAR HEMOGLOBIN 30.8 pg (28.0-32.0); MEAN CORPUSCULAR VOLUME 94.7 fL (80.0-94.0); PLATELET 53 x1000/uL (130-400); RED BLOOD CELL COUNT 2.52 mill/uL (4.7-6.1); RED CELL DISTRIBUTION WIDTH 15.4 % (11.6-14.6)
[2020-04-20] MEDS: FERROUS SULFATE 300MG/5ML UDC PO SCH ×2 (07:18→09:01)
[2020-04-20] MEDS: AMLODIPINE 10MG TABLET PO SCH (09:00)
[2020-04-20] MEDS: FOLIC ACID/VITAMIN B COMP W-C TABLET PO SCH (09:01)
[2020-04-20] MEDS: PANTOPRAZOLE SODIUM 40 MG/VIAL IV SCH (09:01)
[2020-04-20] MEDS: ZINC SULFATE 220 MG ( 50 ) CAPSULE PO SCH (09:01)
[2020-04-20] MEDS: CALCIUM ACETATE 667MG CAPSULE PO SCH ×3 (09:01→17:03)
[2020-04-20] MEDS: DEXAMETHASONE 10 MG/ML VIAL IV SCH (09:01)
[2020-04-20] MEDS: ATORVASTATIN CALCIUM 20MG TABLET PO SCH (21:04)
[2020-04-21] VITALS (46 sets, daily range): BP systolic 90–153; BP diastolic 50–79
[2020-04-21] MEDS: BLOOD SUGAR DIAGNOSTIC STRIP TEST SCH ×14 (01:00→14:20)
[2020-04-21] MEDS: METOCLOPRAMIDE HCL 10MG/2ML VIAL IV SCH ×3 (06:00→11:51)
[2020-04-21] MEDS: FERROUS SULFATE 300MG/5ML UDC PO SCH (08:08)
[2020-04-21] MEDS: CALCIUM ACETATE 667MG CAPSULE PO SCH ×2 (08:08→11:51)
[2020-04-21] MEDS: FOLIC ACID/VITAMIN B COMP W-C TABLET PO SCH (08:35)
[2020-04-21] MEDS: PANTOPRAZOLE SODIUM 40 MG/VIAL IV SCH (08:35)
[2020-04-21] MEDS: DEXAMETHASONE 10 MG/ML VIAL IV SCH (08:36)
[2020-04-21] MEDS: ZINC SULFATE 220 MG ( 50 ) CAPSULE PO SCH (08:36)
[2020-04-21] MEDS: AMLODIPINE 10MG TABLET PO SCH (08:36)
[2020-04-21] MEDS: INSULIN REGULAR (DRIP) 100 UNITS in SODIUM CHLORIDE 0.9% 99 ML IV SCH (08:37)
[2020-04-22] VITALS (22 sets, daily range): BP systolic 77–96; BP diastolic 44–57
== END 2020-04-22 21:37 | disposition expired | DRG 870 ==
LOC: ER 03:47 → 8WST 05:26 → ENRESERV 07:18 → EDBEDREQ 07:25 → ER 08:19 → 5EST 18:18 → 7WST 04-06 19:45 → MICUSO 04-12 10:05
PROVIDERS: ADMIT Internal Medicine; ATTEND Internal Medicine
PROC: 30233N1 Transfusion of Nonautologous Red Blood Cells into Peripheral Vein, Percutaneous Approach (ICD-10-PCS; 2020-04-02)
PROC: 0JH63XZ Insertion of Tunneled Vascular Access Device into Chest Subcutaneous Tissue and Fascia, Percutaneous Approach (ICD-10-PCS; 2020-04-02)
PROC: 02HV33Z Insertion of Infusion Device into Superior Vena Cava, Percutaneous Approach (ICD-10-PCS; 2020-04-02)
PROC: B5181ZA Fluoroscopy of Superior Vena Cava using Low Osmolar Contrast, Guidance (ICD-10-PCS; 2020-04-02)
PROC: B548ZZA Ultrasonography of Superior Vena Cava, Guidance (ICD-10-PCS; 2020-04-02)
PROC: 5A1D70Z Performance of Urinary Filtration, Intermittent, Less than 6 Hours Per Day (ICD-10-PCS; 2020-04-02)
PROC: 5A1D70Z Performance of Urinary Filtration, Intermittent, Less than 6 Hours Per Day (ICD-10-PCS; 2020-04-03)
PROC: 5A1D70Z Performance of Urinary Filtration, Intermittent, Less than 6 Hours Per Day (ICD-10-PCS; 2020-04-05)
PROC: 5A1D70Z Performance of Urinary Filtration, Intermittent, Less than 6 Hours Per Day (ICD-10-PCS; 2020-04-07)
PROC: 5A1D70Z Performance of Urinary Filtration, Intermittent, Less than 6 Hours Per Day (ICD-10-PCS; 2020-04-09)
PROC: XW13325 Transfusion of Convalescent Plasma (Nonautologous) into Peripheral Vein, Percutaneous Approach, New Technology Group 5 (ICD-10-PCS; 2020-04-10)
PROC: 5A1955Z Respiratory Ventilation, Greater than 96 Consecutive Hours (ICD-10-PCS; principal; 2020-04-12)
PROC: 0BH17EZ Insertion of Endotracheal Airway into Trachea, Via Natural or Artificial Opening (ICD-10-PCS; 2020-04-12)
PROC: 5A12012 Performance of Cardiac Output, Single, Manual (ICD-10-PCS; 2020-04-12)
PROC: 03HY33Z Insertion of Infusion Device into Upper Artery, Percutaneous Approach (ICD-10-PCS; 2020-04-12)
PROC: 06HY33Z Insertion of Infusion Device into Lower Vein, Percutaneous Approach (ICD-10-PCS; 2020-04-12)
PROC: 5A1D70Z Performance of Urinary Filtration, Intermittent, Less than 6 Hours Per Day (ICD-10-PCS; 2020-04-12)
PROC: 5A1D70Z Performance of Urinary Filtration, Intermittent, Less than 6 Hours Per Day (ICD-10-PCS; 2020-04-13)
PROC: 5A1D70Z Performance of Urinary Filtration, Intermittent, Less than 6 Hours Per Day (ICD-10-PCS; 2020-04-17)
PROC: 5A1D70Z Performance of Urinary Filtration, Intermittent, Less than 6 Hours Per Day (ICD-10-PCS; 2020-04-18)
PROC: 5A1D70Z Performance of Urinary Filtration, Intermittent, Less than 6 Hours Per Day (ICD-10-PCS; 2020-04-19)
DX: A41.89 Other specified sepsis (principal); U07.1 COVID-19; J96.01 Acute respiratory failure with hypoxia; I21.4 Non-ST elevation (NSTEMI) myocardial infarction; N18.6 End stage renal disease; I50.33 Acute on chronic diastolic (congestive) heart failure; E43 Unspecified severe protein-calorie malnutrition; J12.89 Other viral pneumonia; J96.02 Acute respiratory failure with hypercapnia; E87.2 Acidosis; I13.2 Hypertensive heart and chronic kidney disease with heart failure and with stage 5 chronic kidney disease, or end stage renal disease; G93.40 Encephalopathy, unspecified; D68.59 Other primary thrombophilia; E87.4 Mixed disorder of acid-base balance; G93.1 Anoxic brain damage, not elsewhere classified; I44.2 Atrioventricular block, complete; N17.9 Acute kidney failure, unspecified; Z66 Do not resuscitate; I46.9 Cardiac arrest, cause unspecified; D63.1 Anemia in chronic kidney disease; E11.22 Type 2 diabetes mellitus with diabetic chronic kidney disease; I44.0 Atrioventricular block, first degree; E87.5 Hyperkalemia; E11.649 Type 2 diabetes mellitus with hypoglycemia without coma; E83.39 Other disorders of phosphorus metabolism; E78.5 Hyperlipidemia, unspecified; E11.65 Type 2 diabetes mellitus with hyperglycemia; E66.3 Overweight; R00.1 Bradycardia, unspecified; Z79.4 Long term (current) use of insulin; Z79.899 Other long term (current) drug therapy; Z91.19 Patient's noncompliance with other medical treatment and regimen; Z99.2 Dependence on renal dialysis
CPT/HCPCS: 36415; 36600; 71045; 76770; 76937; 77001; 78610; 80048; 80053; 80061; 80202; 80305; 81003; 82140; 82270; 82375; 82550; 82553; 82607; 82746; 82805; 82962; 83540; 83550; 83880; 84100; 84145; 84439; 84443; 84484; 85025; 85027; 85379; 86705; 86706; 86803; 86850; 86900; 86920; 87340; 87635; 92950; 93005; 93306; 94002; 94003; 94640; 97162; 97530; 99152; 99153; 99291; A9512; C1750; C1769; C9113; J0360; J0456; J0461; J0690; J0696; J0885; J1100; J1265; J1644; J1650; J1815; J1940; J2270; J2405; J2543; J2765; J3010; J3370; J3490; J7042; J7050; J7060; L8514; P9016; G0500